=== PATIENT | male | born 1940 | race Caucasian/White ===

== ENCOUNTER → 2017-02-16 | Day surgery (SDC) | payer MEDICARE ==
[~2017-02-16] MED LIST: 1-ME1LIQ PO; ATOR20TA42 PO; CLON0.2T PO; CYMB60CA PO; FURO40TA PO; GLIM1TAB PO; JANT5TAB2 PO; LABE300 PO; LACTATED RINGER'S 1000 ML INJ 1,000 ML ONE; METF-324 PO; POTA-267 PO; PROPOFOL 500 MG/50 ML BTL IV ONE; TERA10CA3 PO
--- NOTE | 2017-02-16 11:25 | GIPROC ---
[facility] [address], [address] COLONOSCOPY PROCEDURE REPORT EXAM DATE: 02/16/2017 PATIENT NAME: Tenzin Gomez MR #: [id number] BIRTHDATE: 1940 ENDOSCOPIST: Jalil Carr MD ORDER #: [id number] EMPLOYEE RELATION MANAGER: Vianney Gallagher RN and Natacha Hall STATUS: outpatient INDICATIONS: The patient is a 76 yr old male here for a colonoscopy due to average risk patient for colon cancer PROCEDURE PERFORMED: Colonoscopy, screening MEDICATIONS: None and Per Anesthesia. PREP QUALITY: good ESTIMATED BLOOD LOSS: None CONSENT: The patient understands the risks and benefits of the procedure and understands that these risks include, but are not limited to: sedation, allergic reaction, infection, perforation and/or bleeding. Alternative means of evaluation and treatment include, among others: physical exam, x-rays, and/or surgical intervention. The patient elects to proceed with this endoscopic procedure. medical equipment was checked for proper function. Hand hygiene and appropriate measures for infection prevention was taken. After the risks, benefits and alternatives of the procedure were thoroughly explained, Informed consent was verified, confirmed and timeout was successfully executed by the treatment team. A digital exam revealed no abnormalities of the rectum The EC-[id number] ([id number]) endoscope was introduced through the anus and advanced to the cecum, which was identified by both the appendix and ileocecal valve. The instrument was then slowly withdrawn as the colon was fully examined. COLON FINDINGS: Mild diverticulosis was noted in the sigmoid colon. The colon mucosa was otherwise normal. Retroflexed views revealed no abnormalities The scope was then completely withdrawn from the patient and the procedure terminated. PROCEDURE WITHDRAWAL TIME:10.8minutes ADVERSE EVENTS: There were no complications. IMPRESSIONS: 1. Mild diverticulosis was noted in the sigmoid colon 2. The colon mucosa was otherwise normal 3. Retroflexed views revealed no abnormalities 4. Revealed no abnormalities of the rectum RECOMMENDATIONS: 1. High fiber diet 2. Yearly hemoccult 3. Follow-up: GI Clinic PRN RECALL: NONE Jalil Carr MD eSigned: Jalil Carr MD 02/16/2017 11:25 AM cc: Slim Brantley M.D and Sanya Doran [facility] Janet
== END | disposition home or self-care (01) ==
LOC: ESDC 08:30
PROVIDERS: ATTEND Internal Medicine Gastroenterology
DX: Z12.11 Encounter for screening for malignant neoplasm of colon (principal); K57.90 Diverticulosis of intestine, part unspecified, without perforation or abscess without bleeding
CPT/HCPCS: 00810; 45378; J7120

== ENCOUNTER 2017-08-01 10:12 | Emergency (ER) | payer MEDICARE ==
[2017-08-01 11:02] LABS: AUTOMATED NEUTROPHIL # 3.1 TH/MM3 (1.8-7.7); BASOPHIL # 0.2 TH/MM3 (0-0.2); BASOPHIL % 3.7 % (0.0-2.0); EOSINOPHIL # 0.2 TH/MM3 (0-0.4); EOSINOPHIL % 3.9 % (0.0-4.0); HEMATOCRIT 39.3 % (39.0-51.0); HEMO FLAGS DIFF FINAL; HEMOGLOBIN 12.8 GM/DL (13.0-17.0); LYMPH % 24.8 % (9.0-44.0); LYMPHOCYTE # 1.2 TH/MM3 (1.0-4.8); MEAN CELL VOLUME 93.4 FL (80.0-100.0); MEAN CORPUSCULAR HEMOGLOBIN 30.3 PG (27.0-34.0); MEAN CORPUSCULAR HGB CONC 32.4 % (32.0-36.0); MEAN PLATELET VOLUME 8.2 FL (7.0-11.0); MONO % 5.3 % (0.0-8.0); MONOCYTE # 0.3 TH/MM3 (0-0.9); NEUT % 62.3 % (16.0-70.0); PLATELET COUNT 225 TH/MM3 (150-450); RED BLOOD COUNT 4.21 MIL/MM3 (4.50-5.90); RED CELL DISTRIBUTION WIDTH 12.9 % (11.6-17.2)
[2017-08-01 11:13] LABS: CHLORIDE 105 MEQ/L (98-107); POTASSIUM 4.5 MEQ/L (3.5-5.1); SODIUM (NA) 141 MEQ/L (136-145)
[2017-08-01 11:15] LABS: CALCIUM 8.4 MG/DL (8.5-10.1)
[2017-08-01 11:16] LABS: ANION GAP 5 MEQ/L (5-15); BICARBONATE 30.8 MEQ/L (21.0-32.0); BLOOD UREA NITROGEN 13 MG/DL (7-18); GLUCOSE,RANDOM 133 MG/DL (74-106); INTERNATIONAL NORMALIZED RATIO 2.2 RATIO; PROTHROMBIN TIME - PATIENT 22.4 SEC (9.8-11.6)
[2017-08-01 11:19] LABS: GLOMERULAR FILTRATION RATE 72 ML/MIN (>89)
[2017-08-01] MEDS: PHYTONADIONE INJ 1 MG/0.5 ML AMP SQ ×2 (12:00→12:22)
== END 2017-08-01 12:44 | disposition home or self-care (01) ==
LOC: PHED 10:12
DX: R04.0 Epistaxis (principal); I48.91 Unspecified atrial fibrillation; E78.00 Pure hypercholesterolemia, unspecified; E11.9 Type 2 diabetes mellitus without complications; J44.9 Chronic obstructive pulmonary disease, unspecified; I10 Essential (primary) hypertension; N40.0 Benign prostatic hyperplasia without lower urinary tract symptoms; Z79.01 Long term (current) use of anticoagulants
CPT/HCPCS: 30905; 80048; 85025; 85610; 96372; 99284-25

== ENCOUNTER 2017-08-01 14:50 | Emergency (ER) | payer MEDICARE ==
[~2017-08-01] VITALS: Ht 188 cm; Wt 105.0 kg
[~2017-08-01 14:50] MED LIST changes: +ATOR20TA15 PO; +FURO80TA PO; +LABE300T PO; -LACTATED RINGER'S 1000 ML INJ 1,000 ML ONE; +METF-382 PO; +POTA10CA PO; -PROPOFOL 500 MG/50 ML BTL IV ONE; +WARF-23 PO; +ZITHTAB PO
[2017-08-01 14:52] VITALS: BP 172/97; PULSE 75; RESP 16; TEMP 98.2; O2SAT 95
--- NOTE | 2017-08-01 15:18 | PD ---
HPI Chief Complaint: Nosebleed Time Seen by Provider: 15:07 Travel History International Travel<30 days: No Contact w/Intl Traveler<30days: No Traveled to known affect area: No History of Present Illness HPI 76-year-old male on Coumadin, presents to the emergency department with recurrent epistaxis in the right naris. Previously seen earlier today at [facility]. Patient seen and Rhino Rocket applied by Dr. Ku. Lab work showed no significant anemia and normal platelets, however his INR was elevated at 2.2. Discharged home after observation, and found to be stable for discharge. Patient states he arrived home and after several minutes after not doing anything particularly had epistaxis. He states he only tried to lay down when it started. Patient now states the bleeding seems to have stopped since arriving here in the emergency department. His no other complaints. Rhino Rocket and bandages are in place. Patient is allergic to penicillin PFSH Past Medical History Hx Anticoagulant Therapy: Yes (WARFARIN) Arthritis: Yes Atrial Fibrillation: Yes Blood Disorders: No Anxiety: No Depression: No Heart Rhythm Problems: Yes ( A FIB) Cancer: Yes (skin) Cardiac Catheterization: No Cardiovascular Problems: Yes (HTN) High Cholesterol: Yes Chemotherapy: No Congestive Heart Failure: No COPD: Yes Diabetes: Yes (TYPE 2) Diminished Hearing: Yes (bilat aids) Endocrine: No Gastrointestinal Disorders: Yes Glaucoma: No Genitourinary: Yes (BPH) Hepatitis: No Hiatal Hernia: No Hypertension: Yes Immune Disorder: No Implanted Vascular Access Dvce: Yes Musculoskeletal: No Neurologic: No Psychiatric: No Reproductive: No Respiratory: No Radiation Therapy: No Thyroid Disease: No Past Surgical History Abdominal Surgery: No AICD: No Appendectomy: Yes Cardiac Surgery: No Coronary Artery Bypass Graft: No Ear Surgery: No Endocrine Surgery: No Eye Surgery: Yes (BILAT. CATARACT) Genitourinary Surgery: Yes (turp) Gynecologic Surgery: No Joint Replacement: Yes (BILAT. KNEE) Oral Surgery: No Pacemaker: No Thoracic Surgery: No Other Surgery: Yes Social History Alcohol Use: Yes (daily) Tobacco Use: No Substance Use: No Allergies-Medications (Allergen,Severity, Reaction): Coded Allergies: penicillin G (Unverified Allergy, Severe, ITCH, HIVES, 08/01/17) Reported Meds & Prescriptions Reported Meds & Active Scripts Active Zithromax Z-Jhony (Azithromycin) 250 Mg Dspk 250 Mg PO DIRECTED 500 MG (2 tabs) day 1, then 1 tab days 2-5. Reported Warfarin 5 Mg Tab 5 Mg PO DAILY Terazosin (Terazosin HCl) 10 Mg Cap 10 Mg PO HS Potassium Chloride ER (Potassium Chloride) 10 Meq Cap 10 Meq PO DAILY Metformin ER (Metformin HCl) 1,000 Mg Yancy 1,000 Mg PO DAILY With evening meal Labetalol (Labetalol HCl) 300 Mg Tab 300 Mg PO BID Glimepiride 1 Mg Tab 1 Mg PO DAILY Take with breakfast or first main meal Furosemide 80 Mg Tab 80 Mg PO DAILY Cymbalta DR (Duloxetine HCl) 60 Mg Capdr 60 Mg PO DAILY Clonidine (Clonidine HCl) 0.2 Mg Tab 0.2 Mg PO BID Atorvastatin (Atorvastatin Calcium) 20 Mg Tab 20 Mg PO HS Review of Systems General / Constitutional: No: Fever Eyes: No: Visual changes HENT: Positive: Nosebleed, No: Headaches, Vertigo, Lightheadedness, Sore Throat , Rhinitis, Rhinorrhea, Congestion, Neck Stiffness, Neck Pain, Dental Difficulties, Earache Cardiovascular: No: Chest Pain or Discomfort Respiratory: No: Shortness of Breath Gastrointestinal: No: Abdominal Pain Genitourinary: No: Dysuria Musculoskeletal: No: Pain Skin: No Rash Neurologic: No: Weakness Psychiatric: No: Depression Endocrine: No: Polydipsia Hematologic/Lymphatic: No: Easy Bruising Physical Exam Narrative GENERAL: Patient appears anxious but otherwise in no acute distress. SKIN: Warm and dry. Normal color. Normal turgor. HEAD: Atraumatic. Normocephalic. EYES: Pupils equal and round. No scleral icterus. No injection or drainage. ENT: No nasal bleeding or discharge. Mucous membranes pink and moist. Rhino Rocket in place in the right naris. No active bleeding appreciated. Posterior pharynx shows some venous appearing blood in the posterior pharynx otherwise no significant findings. Rhino Rocket not removed. NECK: Trachea midline. No JVD. Supple and nontender. CARDIOVASCULAR: Regular rate and rhythm. RESPIRATORY: No accessory muscle use. Clear to auscultation. Breath sounds equal bilaterally. MUSCULOSKELETAL: Extremities without clubbing, cyanosis, or edema. No obvious deformities. NEUROLOGICAL: Awake and alert. No obvious cranial nerve deficits. Motor grossly within normal limits. Five out of 5 muscle strength in the arms and legs. Normal speech. PSYCHIATRIC: Appropriate mood and affect; insight and judgment normal. Data Data Last Documented VS Vital Signs Date Time Temp Pulse Resp B/P (MAP) Pulse Ox O2 Delivery O2 Flow Rate FiO2 08/01/17 16:38 60 207/95 (132) 08/01/17 15:50 16 97 Room Air 08/01/17 14:52 98.2 Orders Orders Clonidine (Catapres) (08/01/17 16:15) [facility] Medical Decision Making Medical Screen Exam Complete: Yes Emergency Medical Condition: Yes Medical Record Reviewed: Yes Differential Diagnosis Elevated INR. Epistaxis. Anxiety. Narrative Course Patient appears medically stable at time of exam although anxious. The bleeding is noted on first exam. Vital signs are stable. Repeat lab work not felt warranted at this time. Rhino Rocket is left in place, and ice packs placed on the patient's forehead, and he is observed. After 30 minutes of observation the patient continues to have minimal venous bleeding., And with removal of outer bandage a large blood clot is noted. It is at this point that the Rhino Rocket is felt to be not placed appropriately. New Rhino Rocket is applied by myself with nursing help. Patient was again observed for 30 minutes. Patient is given 0.1 mg clonidine by mouth for his blood pressure. Patient appears to have no ongoing epistaxis. Patient is felt stable for discharge home with follow-up in 2 days for removal of his Rhino Rocket. Should use ice pack to the area frequently, and rest. No Coumadin until follow-up. Patient can return if bleeding again recurs or worsens. Procedures Procedure Narrative Rhino Rocket was removed. An replaced with larger Rhino Rocket with good epistaxis cauterization. Diagnosis Primary Impression: Right-sided epistaxis Additional Impression: Elevated INR Patient Instructions: Epistaxis (DC), General Instructions Additional Instructions: Patient is felt stable for discharge home with follow-up in 2 days for removal of his Rhino Rocket. Should use ice pack to the area frequently, and rest. No Coumadin until follow-up. Patient can return if bleeding again recurs or worsens. Med/Other Pt SpecificInfo: Med Stopped Disposition: DISCHARGE HOME Condition: Stable Jorge Alberto Portillo Aug 01, 2017 15:18
[2017-08-01 15:50] VITALS: BP 172/108; PULSE 62; RESP 16; O2SAT 97
[2017-08-01] MEDS ORDERED: cloNIDine HCL 0.1 MG TAB PO ONE (16:15)
[2017-08-01 16:38] VITALS: BP 207/95; PULSE 60
[2017-08-01 17:00] VITALS: BP 213/100; PULSE 58
[2017-08-01 17:30] VITALS: BP 196/95; PULSE 67
[2017-08-01 18:08] VITALS: BP 195/95
== END 2017-08-01 18:20 | disposition home or self-care (01) ==
LOC: NEPD 14:50
DX: R04.0 Epistaxis (principal); R79.1 Abnormal coagulation profile; E11.9 Type 2 diabetes mellitus without complications; E78.00 Pure hypercholesterolemia, unspecified; I10 Essential (primary) hypertension; I48.91 Unspecified atrial fibrillation; J44.9 Chronic obstructive pulmonary disease, unspecified; N40.0 Benign prostatic hyperplasia without lower urinary tract symptoms
CPT/HCPCS: 30903

== ENCOUNTER 2017-08-04 10:06 | Emergency (ER) | payer MEDICARE ==
[~2017-08-04] VITALS: Ht 188 cm; Wt 104.0 kg
[~2017-08-04 10:06] MED LIST changes: -1-ME1LIQ PO; -ATOR20TA42 PO; -FURO40TA PO; -JANT5TAB2 PO; -LABE300 PO; -METF-324 PO; -POTA-267 PO
[2017-08-04 10:08] VITALS: BP 164/89; PULSE 80; RESP 14; TEMP 97.3; O2SAT 97
--- NOTE | 2017-08-04 11:27 | PD ---
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 He is on warfarin and has not taken the medication since Thursday. He was told to stop the medication for 3-4 days. Denies fever, vomiting. Denies bleeding around the nasal rocket. No known relieving or aggravating factors. Symptoms are mild in severity. Allergies to penicillin. History of diabetes, atrial fibrillation, hypertension. Primary care provider is Dr. Pinon. No other medical complaints. No other modifying factors or associated signs and symptoms. PFSH Past Medical History Hx Anticoagulant Therapy: Yes Arthritis: Yes Atrial Fibrillation: Yes Blood Disorders: No Anxiety: No Depression: No Heart Rhythm Problems: Yes ( A FIB) Cancer: Yes (skin) Cardiac Catheterization: No Cardiovascular Problems: Yes High Cholesterol: Yes Chemotherapy: No Congestive Heart Failure: No COPD: Yes Diabetes: Yes (TYPE 2) Diminished Hearing: Yes (bilat aids) Endocrine: No Gastrointestinal Disorders: Yes Glaucoma: No Genitourinary: Yes (BPH) Hepatitis: No Hiatal Hernia: No Hypertension: Yes Immune Disorder: No Implanted Vascular Access Dvce: Yes Musculoskeletal: No Neurologic: No Psychiatric: No Reproductive: No Respiratory: No Radiation Therapy: No Thyroid Disease: No Past Surgical History Abdominal Surgery: No AICD: No Appendectomy: Yes Cardiac Surgery: No Coronary Artery Bypass Graft: No Ear Surgery: No Endocrine Surgery: No Eye Surgery: Yes (BILAT. CATARACT) Genitourinary Surgery: Yes (turp) Gynecologic Surgery: No Joint Replacement: Yes (BILAT. KNEE) Oral Surgery: No Pacemaker: No Thoracic Surgery: No Other Surgery: Yes Social History Alcohol Use: Yes (daily) Tobacco Use: No Substance Use: No Allergies-Medications (Allergen,Severity, Reaction): Coded Allergies: penicillin G (Unverified Allergy, Severe, ITCH, HIVES, 08/04/17) Reported Meds & Prescriptions Reported Meds & Active Scripts Active Zithromax Z-Jhony (Azithromycin) 250 Mg Dspk 250 Mg PO DIRECTED 500 MG (2 tabs) day 1, then 1 tab days 2-5. Reported Warfarin 5 Mg Tab 5 Mg PO DAILY Terazosin (Terazosin HCl) 10 Mg Cap 10 Mg PO HS Potassium Chloride ER (Potassium Chloride) 10 Meq Cap 10 Meq PO DAILY Metformin ER (Metformin HCl) 1,000 Mg Yancy 1,000 Mg PO DAILY With evening meal Labetalol (Labetalol HCl) 300 Mg Tab 300 Mg PO BID Glimepiride 1 Mg Tab 1 Mg PO DAILY Take with breakfast or first main meal Furosemide 80 Mg Tab 80 Mg PO DAILY Cymbalta DR (Duloxetine HCl) 60 Mg Capdr 60 Mg PO DAILY Clonidine (Clonidine HCl) 0.2 Mg Tab 0.2 Mg PO BID Atorvastatin (Atorvastatin Calcium) 20 Mg Tab 20 Mg PO HS Review of Systems Except as stated in HPI: all other systems reviewed are Neg Physical Exam Narrative GENERAL: Well-nourished, well-developed male patient, in no acute distress SKIN: Warm and dry. HEAD: Atraumatic. Normocephalic. EYES: Pupils equal and round. No scleral icterus. No injection or drainage. ENT: Mucosa pink and moist. Right naris nasal rocket removed: Nasal turbinates appear normal without nasal blood, purulent drainage or septal hematoma. NECK: Trachea midline. CARDIOVASCULAR: Regular rate. RESPIRATORY: No accessory muscle use. GASTROINTESTINAL: Rounded. MUSCULOSKELETAL: No obvious deformities. No clubbing. No cyanosis. No edema. NEUROLOGICAL: Awake and alert. Oriented 3. No obvious cranial nerve deficits. Motor grossly within normal limits. Normal speech. PSYCHIATRIC: Appropriate mood and affect; insight and judgment normal. Data Data Last Documented VS Vital Signs Date Time Temp Pulse Resp B/P (MAP) Pulse Ox O2 Delivery O2 Flow Rate FiO2 08/04/17 10:08 97.3 80 14 164/89 (114) 97 Orders Orders Ed Discharge Order (08/04/17 11:28) [facility] Medical Decision Making Medical Screen Exam Complete: Yes Emergency Medical Condition: Yes Medical Record Reviewed: Yes Differential Diagnosis Epistaxis, vice president medical affairs removal, medical clearance Narrative Course 76-year-old male presents for right nares nasal rocket removal. Nasal rocket removed. Patient tolerated well. Patient will be monitored for approximately 15 -20 minutes and will be discharged home if no continued bleeding. He has a follow-up appointment with his primary care provider at 12:30 today. Instructed patient to follow up with primary care provider. Patient verbalizes understanding and agreement with treatment plan. Patient is medically cleared and stable for discharge. Discussed reasons to return to the emergency department. Patient agrees with treatment plan. The patients vital signs are stable and the patient is stable for outpatient follow-up and treatment. Patient discharged home, stable and in no acute distress. Diagnosis Primary Impression: Epistaxis Referrals: Primary Care Physician Patient Instructions: Epistaxis (DC), General Instructions Additional Instructions: Do not blow your nose Do not rub your nose Follow-up with her primary care provider Return to the emergency department immediately for worsening of symptoms Med/Other Pt SpecificInfo: No Change to Meds, No Meds Exist/No RX given Disposition: 01 DISCHARGE HOME Condition: Stable Sarika Sherwood Aug 04, 2017 11:27
== END 2017-08-04 11:50 | disposition home or self-care (01) ==
LOC: NEPD 10:06
DX: Z48.00 Encounter for change or removal of nonsurgical wound dressing (principal); R04.0 Epistaxis; Z79.01 Long term (current) use of anticoagulants; I48.91 Unspecified atrial fibrillation; I10 Essential (primary) hypertension; E11.9 Type 2 diabetes mellitus without complications; E78.00 Pure hypercholesterolemia, unspecified; J44.9 Chronic obstructive pulmonary disease, unspecified; N40.0 Benign prostatic hyperplasia without lower urinary tract symptoms
CPT/HCPCS: 99281